=== PATIENT | male | born 1945 | race Caucasian/White ===

== ENCOUNTER 2016-10-06 08:56 | Observation (INO) | payer OTHER ==
[~2016-10-06] VITALS: Ht 172.7 cm; Wt 82.6 kg
[~2016-10-06 08:56] MED LIST: APAP500 PO; AUGMENTIN 875875 M1 PO; BACTRIM DS TAB1 EACH; HYDROCHLOROTH12.5 MG; HYDROCODON-ACE1 EAC7; HYDROCODON-ACE1 EAC7 PO; MULTIVITAMINS
[2016-10-06 08:57] VITALS: BP 125/73
[2016-10-06] MEDS ORDERED: PROTONIX40 M1 PO (09:03)
[2016-10-06] MEDS ORDERED: PRINIVIL20 MG PO (09:03)
[2016-10-06] MEDS ORDERED: LIPITOR10 MG PO (09:04)
[2016-10-06 09:34] LABS: HEMATOCRIT 42.8 % (42.0-52.0); HEMOGLOBIN 14.8 gm/dL (14.0-18.0); MCHC 34.6 g/dL (28.0-37.0); MCV 86.8 fL (80.0-100.0); PLATELET COUNT 185 thou/uL (150-400); RBC 4.93 mil/uL (4.50-6.00); RDW 13.8 % (10.5-14.5); WBC 6.8 thou/uL (4.0-11.0)
[2016-10-06 09:35] LABS: MANUAL DIFF YES
[2016-10-06 09:39] LABS: CALCIUM 9.1 mg/dL (8.5-10.1); CREATININE 1.2 mg/dL (0.7-1.3); POTASSIUM 3.8 mmol/L (3.5-5.1)
[2016-10-06 09:56] LABS: ABSOLUTE NEUTROPHILS 4.1 thou/uL (1.4-8.2); METAMYELOCYTES 1 %; TOTAL CELL COUNT 100
[2016-10-06 09:58] LABS: ANISOCYTOSIS SLIGHT
[2016-10-06 11:12] VITALS: BP 120/73
[2016-10-06 19:44] VITALS: BP 106/68
[2016-10-07 04:35] VITALS: BP 123/65
[2016-10-07 05:09] LABS: HEMATOCRIT 39.6 % (42.0-52.0); HEMOGLOBIN 13.6 gm/dL (14.0-18.0); MCH 29.8 pg (26.0-34.0); MCHC 34.2 g/dL (28.0-37.0); MCV 86.9 fL (80.0-100.0); PLATELET COUNT 180 thou/uL (150-400); RBC 4.56 mil/uL (4.50-6.00); RDW 13.7 % (10.5-14.5); WBC 6.1 thou/uL (4.0-11.0)
[2016-10-07 05:10] LABS: MANUAL DIFF YES
[2016-10-07 05:18] LABS: CALCIUM 8.4 mg/dL (8.5-10.1); CREATININE 1.1 mg/dL (0.7-1.3)
[2016-10-07 08:26] LABS: ABSOLUTE NEUTROPHILS 2.6 thou/uL (1.4-8.2); METAMYELOCYTES 1 %; TOTAL CELL COUNT 100
[2016-10-07 09:12] VITALS: BP 127/72
[2016-10-07] MEDS ORDERED: ACIDOPHILUS1 EAC4 PO (12:15)
[2016-10-07] MEDS ORDERED: CLEOCIN HCL300 MG PO (12:15)
[2016-10-07 13:17] VITALS: BP 127/72
== END 2016-10-07 13:45 | disposition home or self-care (01) ==
LOC: ER 08:56 → EROBS 10:08 → 3N 10:08
PROVIDERS: Internal Medicine Endocrinology, Diabetes & Metabolism; Physician Assistant
DX: L03.116 Cellulitis of left lower limb (principal); K21.9 Gastro-esophageal reflux disease without esophagitis; I10 Essential (primary) hypertension; E78.5 Hyperlipidemia, unspecified; Z79.899 Other long term (current) drug therapy
CPT/HCPCS: 23020; 23021; 23029; 23031